=== PATIENT | male | born 1945 | race Caucasian/White ===

== ENCOUNTER 2019-12-10 23:28 | Emergency (ER) | payer BC, MEDICARE ==
[2019-12-11] MEDS ORDERED: Lidocaine/EPINEPHrine/Tetracaine Soln 1 ML TOP ONE (00:10)
[2019-12-11] MEDS ORDERED: Lidocaine 1% with EPINEPHrine 1:100,000 10 ML MDV INJECT ONE (00:10)
[2019-12-11] MEDS ORDERED: Diphtheria,Pertussis(Acell),Tetanus Vaccine 0.5 ML Syringe IM ONE (00:10)
[2019-12-11] MEDS ORDERED: Bupivacaine 0.5% 10 ML SDV INJECT ONE (01:31)
--- NOTE | 2019-12-11 01:49 | EDM.PDOC ---
ED HPI GENERAL MEDICAL PROBLEM - General Chief Complaint: Laceration Stated Complaint: FELL AND CUT LEFT KNEE Time Seen by Provider: 12/11/19 01:29 Source of Information: Reports: Patient History Limitations: Reports: No Limitations - History of Present Illness INITIAL COMMENTS - FREE TEXT/NARRATIVE: Mr. Ulloa is a very pleasant 74-year-old gentleman who now presents the ED with an anterior left knee laceration. He states that he [facility] around 12 mixed [facility], then, as he was attempting to walk home around 23:00, he tripped and fell. He is not certain if he fell onto concrete, or tripped on concrete then fell on direct. He did not hit his head, and he states that he is otherwise uninjured. Here in the ED, the patient's initial BP is found to be modestly elevated at 161/91, otherwise, he is hemodynamically stable, afebrile, saturating 98% on room air. The patient states that his last tetanus vaccination was 10 to 12 years ago. He agreed to receive a tetanus vaccination here [facility]. Other than his left knee laceration, the patient denies having a recent fever, chills, sore throat, ear pain, nasal or sinus congestion, cough, dyspnea, chest pain, palpitations, nausea, vomiting, constipation, diarrhea, abdominal pain, urinary symptoms, recent weight gain or weight loss, recent bloody bowel movements or black bowel movements, recent joint aches, headaches, or rashes. The patient and his are visiting from [place]. - Related Data Allergies Allergy/AdvReac Type Severity Reaction Status Date / Time No Known Allergies Allergy Verified 12/10/19 23:56 Home Meds: Home Meds cephALEXin [Keflex] 1 tab PO Q6H #40 capsule 12/11/19 [Rx] Past Medical History Gastrointestinal History: Reports: Other (See Below) - Past Surgical History HEENT Surgical History: Reports: Cataract Surgery (right only) Male Surgical History: Reports: Other (See Below) (Repair of "rectal tear" - fistulotomy?) Musculoskeletal Surgical History: Reports: Carpal Tunnel (left only), ORIF (left ankle) Social & Family History - Tobacco Use Smoking Status *Q: Current Every Day Smoker Years of Tobacco use: 40 Packs/Tins Daily: 2 - Caffeine Use Caffeine Use: Reports: Coffee, Soda - Alcohol Use Alcohol Use History: Yes Alcohol Use Frequency: Daily (occasionally to excess) - Recreational Drug Use Recreational Drug Use: No - Living Situation & Occupation Living situation: Reports: , with Spouse Occupation: Retired ED ROS GENERAL - Review of Systems Review Of Systems: Comprehensive ROS is negative, except as noted in HPI. ED EXAM, SKIN/RASH Exam: See Below Exam Limited By: No Limitations General Appearance: Alert, WD/WN, No Apparent Distress, Other (Clinically intoxicated, with loud, slightly slurred speech) Eye Exam: Bilateral Eye: EOMI, Normal Inspection Ears: Normal External Exam, Hearing Grossly Normal Nose: Normal Inspection Throat/Mouth: Normal Inspection, Normal Lips, Normal Voice, No Airway Compromise Head: Atraumatic Extremities: Other (Approximately 8 cm "V"-shaped laceration to the anterior left knee. No patellar tenderness. No weakness to extension of the left knee, and no pain with flexion; no visible tendinous injury. Neurovascular status of the left lower extremity is intact.) ED SKIN PROCEDURES - Laceration/Wound Repair Left Knee Appearance: Subcutaneous, Irregular, Moderately Contaminated Distal NVT: Neuro & Vascular Intact, No Tendon Injury Anesthetic Type: Local Local Anesthesia - Lidocaine (Xylocaine): 1% with EPI (50:50 admixture) Local Anesthesia - Bupivicaine (Marcaine): 0.5% Plain (50:50 admixture) Local Anesthetic Volume: 5cc Skin Prep: Saline Exploration/Debridement/Repair: Wound Explored, In a Bloodless Field, Explored to Base, Foreign Material Removed Closed with: Severiano Lac/Wound length In cm: 8 # of Sutures: 14 Drain Placement: No Sterile Dressing Applied: Nurse Tetanus Status Addressed: Yes Complications: No Course - Vital Signs Last Recorded V/S: Last Vital Signs Temp 36.4 C 12/10/19 23:53 Pulse 81 12/10/19 23:53 Resp 18 12/10/19 23:53 BP 161/91 H 12/10/19 23:53 Pulse Ox 98 12/10/19 23:53 - Orders/Labs/Meds Orders: Active Orders 24 hr Category Date Time Status Vaccines to be Administered [RC] PER UNIT ROUTINE Care 12/11/19 00:10 Active Meds: Medications Discontinued Medications Generic Name Dose Route Start Last Admin Trade Name Freq PRN Reason Stop Dose Admin Bupivacaine HCl 10 ml 12/11/19 01:31 12/11/19 01:46 Sensorcaine-Mpf 0.5% INJECT 12/11/19 01:32 10 ml ONETIME ONE Administration Cephalexin 500 mg 12/11/19 02:16 Keflex PO 12/11/19 02:17 ONETIME STA Diphtheria/Tetanus/Acell Pertussis 0.5 ml 12/11/19 00:10 12/11/19 00:18 Adacel IM 12/11/19 00:11 0.5 ml .ONCE ONE Administration Lidocaine/Epinephrine 10 ml 12/11/19 00:10 12/11/19 00:18 Xylocaine 1% With Epinephrine 1:100,000 INJECT 12/11/19 00:11 10 ml ONETIME ONE Administration Lidocaine/Tetracaine 1 ml 12/11/19 00:10 12/11/19 00:19 Let Soln TOP 12/11/19 00:11 1 ml ONETIME ONE Administration - Re-Assessments/Exams Free Text/Narrative Re-Assessment/Exam: 12/11/19 01:49 As above, the patient drank excessively tonight, then fell down, suffering a large laceration to his anterior left knee. He is otherwise uninjured. Anum SANON, has been applying topical LET to the laceration. The wound appears to have some dirt in it. I will locally anesthetize the knee, after which Anum SANON will irrigate the wound. 12/11/19 02:17 I injected a 50:50 admixture of lidocaine 1% with epinephrine and bupivacaine 0.5% without epinephrine. Inspecting the wound, I found quite a bit of grit and dirt in the wound, which I removed as much as possible. Anum SANON will irrigate the wound, however, because of the dirtiness, I believe it would be appropriate to treat the patient with a course of antibiotics. I will start him on Keflex. 12/11/19 02:25 The wound appears to be much suede cleaner following irrigation. I approximated the edges with 14 severiano. The patient tolerated the procedure very well. He will be discharged home with a 10-day prescription for Keflex. The patient states that he will be leaving [employer] in about 2 days, expecting to return home to [place] in around 11 days. He can have the severiano removed once he gets home. The patient will be given a tetanus vaccination prior to discharge. Departure - Departure Time of Disposition: 02:26 Disposition: Home, Self-Care 01 Condition: Good Clinical Impression: Alcohol intoxication, Laceration of left knee - Discharge Information *PRESCRIPTION DRUG MONITORING PROGRAM REVIEWED*: Not Applicable *COPY OF PRESCRIPTION DRUG MONITORING REPORT IN PATIENT CHRISTOPHER: Not Applicable Referrals: PCP,Not In Area [Primary Care Provider] - Forms: ED Department Discharge Additional Instructions: You were seen in the emergency room after becoming intoxicated and falling, cutting your left knee. Your knee wound was cleaned then closed with 14 severiano. Keep the wound clean with ordinary soap and water, when you bathe. Pat dry, then cover with a large Band-Aid, at least for the next few days, to avoid getting blood on your clothes or bed sheets. Do not soak the knee in the tub or go swimming. Do not apply an antibiotic ointment to the wound. Take [id number] Tylenol or ibuprofen as needed for discomfort. You have been started on the antibiotic Keflex, and a prescription for Keflex has been sent to the [facility], located in the [employer] [facility] store. Take 1 tablet of Keflex every 6 hours, as prescribed. Finish the entire prescription unless told otherwise by your doctor. The severiano should be ready for removal by 12/20/2019. They can be removed at a walk-in or urgent care clinic, by a nurse at your doctor's office, or in an ER, however, DO NOT attempt to remove them yourself - they require a special tool. Since you will be on an antibiotic, it is highly unlikely that the wound will become infected, however, if there are any concerns of an infection, including worsening redness, swelling, inordinate pain, or drainage, please do not hesitate to return to this or any other ER for reevaluation. *You were given a tetanus vaccination during your ER visit.* Sepsis Event Note (ED) - Evaluation Sepsis Screening Result: No Definite Risk - Focused Exam Vital Signs: Vital Signs Temp Pulse Resp BP Pulse Ox 12/10/19 23:53 36.4 C 81 18 161/91 H 98 - My Orders Last 24 Hours: My Active Orders 12/11/19 00:10 Vaccines to be Administered [RC] PER UNIT ROUTINE - Assessment/Plan Last 24 Hours: My Active Orders 12/11/19 00:10 Vaccines to be Administered [RC] PER UNIT ROUTINE
[2019-12-11] MEDS ORDERED: Cephalexin 500 MG Cap PO STA (02:16)
== END 2019-12-11 03:04 | disposition home or self-care (01) ==
LOC: JD.ED 23:28
DX: S81.012A Laceration without foreign body, left knee, initial encounter (principal); F10.129 Alcohol abuse with intoxication, unspecified; Z23 Encounter for immunization; F17.210 Nicotine dependence, cigarettes, uncomplicated; W01.0XXA Fall on same level from slipping, tripping and stumbling without subsequent striking against object, initial encounter
CPT/HCPCS: 12034; 90471; 90715; 99283; A9270; J3490; 12004